=== PATIENT | male | born 1980 | race Hispanic/Latino ===

== ENCOUNTER 2018-09-10 13:26 | Emergency (ER) | payer BC, OTHER ==
[2018-09-10 13:36] VITALS: BP 146/91; PULSE 61; RESP 18; TEMP 97.8; O2SAT 99
[2018-09-10] MEDS ORDERED: Lidocaine 1% Inj (20ml) INFIL ONE (13:38)
[2018-09-10] MEDS ORDERED: Tdap Vaccine 0.5 ml Vial (10-64 yrs) IM ONE ×2 (13:38→13:47)
[2018-09-10] MEDS ORDERED: Povidone Iodine Topical 10% Sol ONE (13:41)
[2018-09-10] MEDS ORDERED: Lidocaine 1% Inj (20ml) ONE (13:41)
--- NOTE | 2018-09-10 14:05 | ED PDOC ---
Upper Extremity Pain/Injury Time Seen by Provider: 09/10/18 13:35 Chief Complaint (Nursing): Finger,Hand,&Wrist Chief Complaint (Provider): Right Finger Laceration History Per: Patient History/Exam Limitations: no limitations Onset/Duration Of Symptoms: Mins Current Symptoms Are (Timing): Still Present Additional Complaint(s): 38 year old male presents to the ER for an evaluation of laceration on his right pinky today. Patient states earlier today, a mug accidently broke and cut the finger. Denies numbness, tingling or any foreign body sensation. PMD: Yvan Hawk Past Medical History Reviewed: Historical Data, Nursing Documentation, Vital Signs Vital Signs: Last Vital Signs Temp 97.8 F 09/10/18 13:34 Pulse 61 09/10/18 13:34 Resp 18 09/10/18 13:34 BP 146/91 H 09/10/18 13:34 Pulse Ox 99 09/10/18 13:34 - Medical History PMH: No Chronic Diseases - Surgical History Surgical History: Back Surgery - Family History Family History: States: No Known Family Hx - Social History Current smoker - smoking cessation education provided: No Alcohol: None Drugs: Denies - Home Medications Home Medications: Ambulatory Orders Medication Instructions Recorded Cephalexin [cephalexin] 500 mg PO Q6 #12 cap 09/10/18 - Allergies Allergies/Adverse Reactions: Allergies Allergy/AdvReac Type Severity Reaction Status Date / Time gabapentin Allergy DIZZINESS Verified 09/10/18 13:33 Review of Systems ROS Statement: Except As Marked, All Systems Reviewed And Found Negative Constitutional: Negative for: Fever Neurological: Negative for: Numbness, Other (tingling) Physical Exam - Reviewed Nursing Documentation Reviewed: Yes Vital Signs Reviewed: Yes - Physical Exam Appears: Positive for: Well, Non-toxic, No Acute Distress Head Exam: Positive for: ATRAUMATIC, NORMAL INSPECTION, NORMOCEPHALIC Skin: Positive for: Normal Color, Warm, Dry Eye Exam: Positive for: Normal appearance Extremity: Positive for: Normal ROM (actively of R 5th digit), Other (1cm jagged laceration on the right palmar surface of PIP joint of R 5th digit). Negative for: Deformity Neurologic/Psych: Positive for: Alert, Oriented (x3). Negative for: Motor/Sensory Deficits - ECG O2 Sat by Pulse Oximetry: 99 (RA) Pulse Ox Interpretation: Normal Medical Decision Making Medical Decision Making: Time: 1338 Initial Plan: Tetanus 0.5ml Lidocaine 1% Reevaluation Clinical Impression: Finger laceration Upon provider evaluation patient is medically stable, and requires no further treatment in the ED at this time. Patient will be discharged home with Cephalexin 500 mg for wound. Counseling was provided and all questions were answered regarding diagnosis and need for follow up with PMD. There is agreement to discharge plan. Return if symptoms persist or worsen. Scribe Attestation: Documented by Janelle Hinojosa, acting as a scribe for Yaw Presley PA-C Provider Scribe Attestation: All medical record entries made by the Scribe were at my direction and personally dictated by me. I have reviewed the chart and agree that the record accurately reflects my personal performance of the history, physical exam, medical decision making, and the department course for this patient. I have also personally directed, reviewed, and agree with the discharge instructions and disposition. Procedures - Time-Out Type of Procedure: Laceration repair Site of Procedure: R 5th digit Correct Patient: Yes Correct Procedure: Yes Correct Site Marked: Yes PA/Tech: Fernandez ANDRES - Laceration/Wound Repair laceration repair Wound Length (cm): 1 Wound's Depth, Shape: superficial, linear Wound Explored: no foreign body removed Irrigated w/ Saline (ccs): 300 Betadine Prep?: Yes Anesthesia: 1% Lidocaine Volume Anesthetic (ccs): 3 Wound Repaired With: Sutures Suture Size/Type: 6:0, nylon Number of Sutures: 5 Wound Complexity: Simple Disposition - Clinical Impression Clinical Impression: Finger laceration - Patient ED Disposition Is Patient to be Admitted: No - Disposition Referrals: Angella Charlton [place] [Outside] Disposition: Routine/Home Disposition Time: 14:21 Condition: STABLE Additional Instructions: SUTURE REMOVAL IN 10-14 DAYS MARTINA ROBERTS, thank you for letting us take care of you today. Your provider was Yaritza Escobedo MD and you were treated for FINGER LACERATION. The emergency medical care you received today was directed at your acute symptoms. If you were prescribed any medication, please fill it and take as directed. It may take several days for your symptoms to resolve. Return to the Emergency Department if your symptoms worsen, do not improve, or if you have any other problems. Please contact your doctor or call one of the physicians/clinics you have been referred to that are listed on the Patient Visit Information form that is included in your discharge packet. Bring any paperwork you were given at critical access hospital with you along with any medications you are taking to your follow up visit. Our treatment cannot replace ongoing medical care by a primary care provider outside of the emergency department. Thank you for allowing the [facility] team to be part of your care today. If you had an X-Ray or CT scan: A Radiologist will review the ED reading if any change in treatment is needed we will contact you. If you had a blood, urine, or wound culture: It will take several days for the results, if any change in treatment is needed we will contact you. If you had an STI test: It will take 48 hours for the results. Please call after 1 week if you have not heard back. Prescriptions: Cephalexin [cephalexin] 500 mg PO Q6 #12 cap Instructions: Laceration Repair With Stitches (DC) Forms: [employer] ([place]se) Print Language: [id number]
[2018-09-10] MEDS ORDERED: Bacitracin 500 Units/gm Oint Foilpak UD ONE (14:22)
== END 2018-09-10 14:58 | disposition home or self-care (01) ==
LOC: H.ER 13:26
DX: S61.216A Laceration without foreign body of right little finger without damage to nail, initial encounter (principal); W25.XXXA Contact with sharp glass, initial encounter; Y92.89 Other specified places as the place of occurrence of the external cause